=== PATIENT | male | born 1960 | race Caucasian/White ===

== ENCOUNTER 2019-08-15 11:11 | Day surgery (SDC) | payer BC ==
[~2019-08-15] VITALS: Ht 172.7 cm; Wt 71.8 kg
[2019-08-15] MEDS ORDERED: PROP10 PO (11:36)
[2019-08-15] MEDS ORDERED: GABA400 (11:41)
[2019-08-15] MEDS ORDERED: TRAM50 PO (11:42)
[2019-08-15] MEDS ORDERED: ZESTORETIC 20-1 EAC1 PO (11:42)
[2019-08-15] MEDS ORDERED: ALPR1 PO (11:43)
== END 2019-08-15 13:23 | disposition home or self-care (01) ==
LOC: ORSCSDS 11:11
PROVIDERS: Internal Medicine Gastroenterology
PROC: 0DBL8ZX Excision of Transverse Colon, Via Natural or Artificial Opening Endoscopic, Diagnostic (ICD-10-PCS; principal; 2019-08-15 13:30)
PROC: 0DBK8ZX Excision of Ascending Colon, Via Natural or Artificial Opening Endoscopic, Diagnostic (ICD-10-PCS; principal; 2019-08-15 13:30)
DX: Z12.11 Encounter for screening for malignant neoplasm of colon (principal); D12.2 Benign neoplasm of ascending colon; K64.8 Other hemorrhoids; K64.4 Residual hemorrhoidal skin tags; I10 Essential (primary) hypertension; F17.210 Nicotine dependence, cigarettes, uncomplicated; Z79.899 Other long term (current) drug therapy
CPT/HCPCS: 88305; J2704; J7120